=== PATIENT | male | born 1960 | race Caucasian/White ===

== ENCOUNTER 2021-07-04 21:06 | Emergency (ER) | payer BC ==
[~2021-07-04] VITALS: Ht 180.3 cm; Wt 92.7 kg
[2021-07-04 21:28] VITALS: BP 131/76
[2021-07-04] MEDS ORDERED: mupirocin 2% ointment 22GM TP STA (23:36)
[2021-07-04] MEDS ORDERED: DOXYCYCLINE 100MG CAPSULE PO STA (23:36)
[2021-07-04] MEDS ORDERED: MUPI22OI30 TOP (23:39)
[2021-07-04] MEDS ORDERED: DOXY-11 PO (23:39)
== END 2021-07-04 23:54 | disposition home or self-care (01) ==
LOC: ER 21:06
DX: L73.9 Follicular disorder, unspecified (principal); G89.29 Other chronic pain; Z98.890 Other specified postprocedural states; Z79.2 Long term (current) use of antibiotics; Z79.899 Other long term (current) drug therapy
CPT/HCPCS: 99283

== ENCOUNTER 2021-07-10 23:52 | Emergency (ER) | payer BC ==
[~2021-07-10] VITALS: Ht 180.3 cm; Wt 86.4 kg
[~2021-07-10 23:52] MED LIST: DOXY-11 PO; MUPI22OI30 TOP
[2021-07-11 00:01] VITALS: BP 156/73
== END 2021-07-11 03:29 | disposition left against medical advice (07) ==
LOC: ER 23:52
DX: S61.312A Laceration without foreign body of right middle finger with damage to nail, initial encounter (principal); Z53.21 Procedure and treatment not carried out due to patient leaving prior to being seen by health care provider; W26.8XXA Contact with other sharp object(s), not elsewhere classified, initial encounter; Y93.89 Activity, other specified; Y92.89 Other specified places as the place of occurrence of the external cause; Y99.8 Other external cause status